=== PATIENT | female | born 1960 | race Caucasian/White ===

== ENCOUNTER 2017-04-27 17:54 | Inpatient (IN) | payer OTHER ==
[~2017-04-27] VITALS: Ht 162.6 cm; Wt 83.0 kg
[~2017-04-27 17:54] MED LIST: AMB5 PO; ATI1 PO; CYMBALTA PO; ULT50 PO; VAL10 PO
[2017-04-27 18:42] LABS: BASOPHIL % 0.8 % (0-2); PLATELET COUNT 266 x10^3mcL (130-400); RED CELL DISTRIBUTION WIDTH 14.3 % (11.5-14.5)
[2017-04-27] MEDS ORDERED: WEL75 PO (19:23)
[2017-04-27] MEDS ORDERED: CIPROFLOXACIN500 MG PO (19:24)
[2017-04-27] MEDS ORDERED: FLA500 PO (19:24)
[2017-04-27 19:40] LABS: CALCIUM 8.7 mg/dL (8.5-10.1); CARBON DIOXIDE 24.8 mmol/L (21-32); CHLORIDE SERUM 104 mmol/L (98-107); CREATININE SERUM 0.8 mg/dL (0.6-1.0); GFR1 > 60 mL/min; GLUCOSE SERUM 94 mg/dL (74-106); POTASSIUM SERUM 4.2 mmol/L (3.5-5.1); SODIUM SERUM 139 mmol/L (136-145)
[2017-04-27 19:42] LABS: ALBUMIN 3.6 g/dL (3.4-5.0); ALKALINE PHOSPHATASE 91 U/L (46-116); ALT/SGPT 45 U/L (14-59); AST/SGOT 31 U/L (15-37); BILIRUBIN TOTAL 0.5 mg/dL (0.20-1.00); LIPASE 132 IU/L (73-393); TOTAL PROTEIN, SERUM 6.9 g/dL (6.4-8.2)
[2017-04-27 20:00] VITALS: BP 129/71
[2017-04-27 20:05] VITALS: BP 129/71
[2017-04-27 20:16] LABS: microscopic required? YES; urine erythrocyte TRACE (NEGATIVE)
[2017-04-27 20:25] LABS: AMPHETAMINE QUAL UR NONE DETECTED (NEG <=1000)
[2017-04-27 21:41] LABS: FREE T4 1.2 ng/dL (0.76-1.46); FREE THYROXINE INDEX 2.8 ug/dL (1.4-4.5); T4(THYROXINE) 7.4 ug/dL (4.7-13.3)
[2017-04-27 21:46] VITALS: Ht 162.6 cm; Wt 83.0 kg
[2017-04-27 21:51] LABS: MAGNESIUM 2.1 mg/dL (1.8-2.4); PHOSPHOROUS 3.3 mg/dL (2.5-4.9)
[2017-04-27 23:15] LABS: T3 TOTAL 1.06 ng/mL
[2017-04-28 05:20] VITALS: BP 117/61
[2017-04-28 06:32] LABS: CALCIUM 8.3 mg/dL (8.5-10.1); CHLORIDE SERUM 109 mmol/L (98-107); CREATININE SERUM 0.8 mg/dL (0.6-1.0); GFR1 > 60 mL/min; GLUCOSE SERUM 95 mg/dL (74-106); POTASSIUM SERUM 3.7 mmol/L (3.5-5.1); SODIUM SERUM 143 mmol/L (136-145)
[2017-04-28 06:33] LABS: BASOPHIL % 0.5 % (0-2); PLATELET COUNT 242 x10^3mcL (130-400); RED CELL DISTRIBUTION WIDTH 13.9 % (11.5-14.5)
[2017-04-28 08:34] VITALS: BP 117/61
[2017-04-28 11:45] VITALS: BP 130/64
[2017-04-28 17:24] VITALS: BP 134/69
[2017-04-28 21:07] VITALS: BP 131/63
[2017-04-29 06:14] VITALS: BP 117/57
[2017-04-29 06:46] LABS: PLATELET COUNT 250 x10^3mcL (130-400)
[2017-04-29 07:04] LABS: ALKALINE PHOSPHATASE 85 U/L (46-116); ALT/SGPT 93 U/L (14-59); AST/SGOT 93 U/L (15-37); BILIRUBIN DIRECT 0.17 mg/dL (0.0-0.2); BILIRUBIN TOTAL 0.73 mg/dL (0.20-1.00); CALCIUM 8.5 mg/dL (8.5-10.1); CARBON DIOXIDE 23.1 mmol/L (21-32); CHLORIDE SERUM 107 mmol/L (98-107); CREATININE SERUM 0.8 mg/dL (0.6-1.0); GFR1 > 60 mL/min; GLUCOSE SERUM 98 mg/dL (74-106); MAGNESIUM 1.9 mg/dL (1.8-2.4); PHOSPHOROUS 3.8 mg/dL (2.5-4.9); POTASSIUM SERUM 4.2 mmol/L (3.5-5.1); SODIUM SERUM 141 mmol/L (136-145); TOTAL PROTEIN, SERUM 6.3 g/dL (6.4-8.2)
[2017-04-29 07:27] LABS: ALBUMIN 3.2 g/dL (3.4-5.0)
[2017-04-29 07:54] VITALS: BP 127/66
[2017-04-29 09:20] VITALS: BP 112/56
[2017-04-29 14:25] VITALS: BP 124/57
[2017-04-29 16:57] VITALS: BP 112/64
[2017-04-29 20:07] VITALS: BP 118/60
[2017-04-30 05:04] VITALS: BP 136/65
[2017-04-30 07:01] LABS: CALCIUM 8.4 mg/dL (8.5-10.1); CARBON DIOXIDE 26.9 mmol/L (21-32); CHLORIDE SERUM 103 mmol/L (98-107); CREATININE SERUM 0.8 mg/dL (0.6-1.0); GFR1 > 60 mL/min; GLUCOSE SERUM 109 mg/dL (74-106); POTASSIUM SERUM 4.2 mmol/L (3.5-5.1); SODIUM SERUM 139 mmol/L (136-145)
[2017-04-30 07:10] LABS: BILIRUBIN DIRECT 0.12 mg/dL (0.0-0.2); BILIRUBIN TOTAL 0.5 mg/dL (0.20-1.00); TOTAL PROTEIN, SERUM 6.2 g/dL (6.4-8.2)
[2017-04-30 07:17] LABS: ALBUMIN 3.1 g/dL (3.4-5.0)
[2017-04-30 08:11] LABS: BASOPHIL % 0.3 % (0-2); PLATELET COUNT 254 x10^3mcL (130-400); RED CELL DISTRIBUTION WIDTH 14.5 % (11.5-14.5)
[2017-04-30 08:44] VITALS: BP 122/60
[2017-04-30] MEDS ORDERED: LEVAQUIN750 MG PO (10:41)
[2017-04-30] MEDS ORDERED: LAC PO (10:41)
[2017-04-30] MEDS ORDERED: MOT800 PO (10:42)
[2017-04-30] MEDS ORDERED: NORCO 10-325 T1 EACH PO (10:42)
[2017-04-30 12:22] VITALS: BP 122/60
[2017-05-04] MEDS ORDERED: LIPITOR10 MG PO (17:53)
[2017-05-04] MEDS ORDERED: GOOD SENSE ASPI81 M3 PO (17:53)
== END 2017-04-30 12:53 | disposition home or self-care (01) | DRG 418 ==
LOC: ED 17:54 → DU 19:08 → MU 04-29 18:00
PROVIDERS: Emergency Medicine; Family Medicine Sports Medicine; Surgery
PROC: BF131ZZ Fluoroscopy of Gallbladder and Bile Ducts using Low Osmolar Contrast (ICD-10-PCS; 2017-04-28)
PROC: 0FJ44ZZ Inspection of Gallbladder, Percutaneous Endoscopic Approach (ICD-10-PCS; 2017-04-28)
PROC: 0FT44ZZ Resection of Gallbladder, Percutaneous Endoscopic Approach (ICD-10-PCS; principal; 2017-04-28 13:30)
DX: K80.10 Calculus of gallbladder with chronic cholecystitis without obstruction (principal); K57.92 Diverticulitis of intestine, part unspecified, without perforation or abscess without bleeding; N39.0 Urinary tract infection, site not specified; E44.0 Moderate protein-calorie malnutrition; I65.23 Occlusion and stenosis of bilateral carotid arteries; R74.0 Nonspecific elevation of levels of transaminase and lactic acid dehydrogenase [LDH]; R31.9 Hematuria, unspecified; M79.605 Pain in left leg; G89.29 Other chronic pain; Z68.32 Body mass index [BMI] 32.0-32.9, adult
CPT/HCPCS: 83880; 84439; 94150; C1758; C1887; J0330; J0690; J1885; J1956; J2250; J2270; J2405; J2543; J2704; J2710; J3010; J3490; J7030; J7120; Q0092; Q0162; Q9967

== ENCOUNTER 2017-12-13 14:04 | Inpatient (IN) | payer OTHER ==
[~2017-12-13] VITALS: Ht 162.6 cm; Wt 79.4 kg
[~2017-12-13 14:04] MED LIST changes: +CIPROFLOXACIN500 MG PO; +FLA500 PO; +GOOD SENSE ASPI81 M3 PO; +LAC PO; +LEVAQUIN750 MG PO; +LIPITOR10 MG PO; +MOT800 PO; +NORCO 10-325 T1 EACH PO; +WEL75 PO
[2017-12-13 15:04] LABS: CALCIUM 9.2 mg/dL (8.5-10.1); CHLORIDE SERUM 105 mmol/L (98-107); CREATININE SERUM 0.8 mg/dL (0.6-1.0); GFR1 > 60 mL/min; GLUCOSE SERUM 100 mg/dL (74-106); POTASSIUM SERUM 4.2 mmol/L (3.5-5.1); SODIUM SERUM 140 mmol/L (136-145)
[2017-12-13 15:08] LABS: BASOPHIL % 0.6 % (0-2); PLATELET COUNT 327 x10^3mcL (130-400)
[2017-12-13 15:11] LABS: RED CELL DISTRIBUTION WIDTH 14.6 % (11.5-14.5)
[2017-12-13 16:52] VITALS: BP 127/67
[2017-12-13 16:58] LABS: T3 TOTAL 1.04 ng/mL
[2017-12-13 17:02] LABS: MAGNESIUM 2.6 mg/dL (1.8-2.4); PHOSPHOROUS 3.4 mg/dL (2.5-4.9)
[2017-12-13 17:05] LABS: FREE T4 1.04 ng/dL (0.76-1.46); FREE THYROXINE INDEX 2.5 ug/dL (1.4-4.5); T4(THYROXINE) 7.7 ug/dL (4.7-13.3)
[2017-12-13 17:12] LABS: CHOLESTEROL/HDL RATIO 3.5
[2017-12-13 17:54] LABS: microscopic required? YES; urine erythrocyte NEGATIVE (NEGATIVE)
[2017-12-13 20:28] VITALS: BP 122/66
[2017-12-14 04:59] VITALS: BP 116/62
[2017-12-14 07:04] LABS: BASOPHIL % 0.8 % (0-2); PLATELET COUNT 292 x10^3mcL (130-400); RED CELL DISTRIBUTION WIDTH 14.5 % (11.5-14.5)
[2017-12-14 07:19] LABS: CALCIUM 8.4 mg/dL (8.5-10.1); CARBON DIOXIDE 28.3 mmol/L (21-32); CHLORIDE SERUM 107 mmol/L (98-107); CREATININE SERUM 0.8 mg/dL (0.6-1.0); GFR1 > 60 mL/min; GLUCOSE SERUM 92 mg/dL (74-106); MAGNESIUM 2.3 mg/dL (1.8-2.4); POTASSIUM SERUM 4.8 mmol/L (3.5-5.1); SODIUM SERUM 139 mmol/L (136-145)
[2017-12-14 09:15] VITALS: BP 135/68
[2017-12-14 12:37] VITALS: BP 133/64
[2017-12-14 16:19] VITALS: BP 125/67
[2017-12-14 20:52] VITALS: BP 127/50
[2017-12-15 05:36] VITALS: BP 114/54
[2017-12-15 06:41] LABS: BASOPHIL % 0.3 % (0-2); PLATELET COUNT 295 x10^3mcL (130-400)
[2017-12-15 06:44] LABS: RED CELL DISTRIBUTION WIDTH 14.7 % (11.5-14.5)
[2017-12-15 07:13] LABS: CALCIUM 8.8 mg/dL (8.5-10.1); CARBON DIOXIDE 27.5 mmol/L (21-32); CHLORIDE SERUM 106 mmol/L (98-107); CREATININE SERUM 0.8 mg/dL (0.6-1.0); GFR1 > 60 mL/min; GLUCOSE SERUM 97 mg/dL (74-106); MAGNESIUM 2.2 mg/dL (1.8-2.4); PHOSPHOROUS 3.7 mg/dL (2.5-4.9); POTASSIUM SERUM 3.9 mmol/L (3.5-5.1); SODIUM SERUM 140 mmol/L (136-145)
[2017-12-15 09:51] VITALS: BP 112/69
[2017-12-15 12:06] VITALS: BP 132/58
[2017-12-15 15:59] VITALS: BP 132/58
== END 2017-12-15 16:38 | disposition home or self-care (01) | DRG 206 ==
LOC: ED 14:04 → DU 15:32
PROVIDERS: Emergency Medicine; Family Medicine
DX: M94.0 Chondrocostal junction syndrome [Tietze] (principal); F33.9 Major depressive disorder, recurrent, unspecified; K21.9 Gastro-esophageal reflux disease without esophagitis; F41.1 Generalized anxiety disorder; E78.5 Hyperlipidemia, unspecified; M54.2 Cervicalgia; M54.9 Dorsalgia, unspecified; G89.29 Other chronic pain; Z98.1 Arthrodesis status; Z68.30 Body mass index [BMI] 30.0-30.9, adult; Z79.1 Long term (current) use of non-steroidal anti-inflammatories (NSAID)
CPT/HCPCS: 83880; 84439; 90658; A9500; C9113; J1650; J2405; J2785; J3010; J7030; Q0092